=== PATIENT | female | born 1955 | race Caucasian/White ===

== ENCOUNTER 2024-02-02 19:38 | Emergency (ER) | payer MEDICARE, SELFPAY ==
[2024-02-02] VITALS (7 sets, daily range): BP systolic 105–148; BP diastolic 76–89; PULSE 102–104; TEMP 37.4; O2SAT 98; BMI 34.0
--- NOTE | 2024-02-02 19:54 | ECG_ITS ---
[facility] Test Date: 2024-02-02 Pat Name: CESAR VALVERDE Department: Room: - Gender: Female [employer] Architect: : 1955 Requested By: [id number] Order Number: [id number] Reading MD: POLLY RAMOS Measurements Intervals [place] Rate: 102 P: 65 [place]: 162 QRS: 65 QRSD: 82 T: 60 QT: 348 QTc: 407 Interpretive Statements 1120 Sinus tachycardia 9140 abnormal rhythm ECG No previous ECG available for comparison Electronically Signed On 02-03-2024 18:38:51 EDT by POLLY RAMOS
--- NOTE | 2024-02-02 19:55 | ED_ITS ---
HPI HPI - General Adult General Chief complaint: Chest Pain Stated complaint: CP, DIFF BREATHING, STD CHECK D/T BLEEDING Time Seen by Provider: 02/02/24 19:41 Source: patient Mode of arrival: walk-in Limitations: no limitations History of Present Illness HPI narrative: 68-year-old female presents for a multitude of complaints. She states she does not feel well and has not felt well for 3 days. She complains of abdominal pain and possibly some blood in her urine. She is worried about an STD because she had sex for the first time in a year 2 weeks ago. She also seems to be having some chest pain which has been there for days and a slight cough. Related Data Previous Rx's ?Medication ?Instructions ?Recorded sulfamethoxazole 800 1 tab PO BID 7 days #14 tabs 02/02/24 mg-trimethoprim 160 mg tablet (Bactrim DS) Allergies Allergy/AdvReac Type Severity Reaction Status Date / Time amoxicillin Allergy Unknown Verified 02/02/24 19:45 bee venom protein (honey bee) Allergy Unknown Verified 02/02/24 19:45 Penicillins Allergy Unknown Verified 02/02/24 19:45 Opioid HPI Opioid Management Most Recent Opioid Data: No Data to Display Review of Systems ROS Narrative A ten point review of systems is negative except as noted above. Exam Narrative Exam Narrative: Nurses note and vital signs reviewed and patient is not hypoxic. General: The patient appears well and in no apparent distress. Skin: Warm, dry, no pallor noted. There is no rash noted. Head: Normocephalic, atraumatic Eye: Normal conjunctiva, no drainage Ears, Nose, Mouth, and Throat: oral mucosa is moist. Nares patent. There is a lesion at the tip of her tongue. No bleeding Cardiovascular: Regular Rate and Rhythm Respiratory: Patient is in no distress, no accessory muscle use, lungs are clear to auscultation, no wheezing, rales or rhonchi Back: non-tender, no CVA tenderness bilaterally to percussion. GI: Soft and nondistended. Minimal tenderness present Musculoskeletal: The patient has no evidence of calf tenderness, no pitting edema, symmetrical pulses noted bilaterally Neurological: A&O, normal speech Psychiatric: Cooperative, appears anxious Constitutional Vital Signs, click to edit/add: Last Vital Signs Temp 99.3 F 02/02/24 19:45 Pulse 104 H 02/02/24 19:45 Resp 18 02/02/24 19:45 BP 105/82 02/02/24 20:31 Pulse Ox 98 02/02/24 19:45 O2 Del Method Room Air 02/02/24 19:45 Course Vital Signs Vital signs: Vital Signs Temperature 99.3 F 02/02/24 19:45 Pulse Rate 104 H 02/02/24 19:45 Respiratory Rate 18 02/02/24 19:45 Blood Pressure 148/89 H 02/02/24 19:45 Pulse Oximetry 98 02/02/24 19:45 Oxygen Delivery Method Room Air 02/02/24 19:45 Temperature 99.3 F 02/02/24 19:45 Pulse Rate 104 H 02/02/24 19:45 Respiratory Rate 18 02/02/24 19:45 Blood Pressure 105/82 02/02/24 20:31 Pulse Oximetry 98 02/02/24 19:45 Oxygen Delivery Method Room Air 02/02/24 19:45 Medical Decision Making MDM Narrative Medical decision making narrative: Blood work is essentially normal. Chest x-ray is normal. Urine suggest possible UTI and she started on Bactrim here. COVID, influenza, and strep test are all negative. Findings are discussed with the patient and her doctor and she is discharged home. Treatment diagnosis and follow-up were discussed thoroughly. Differential Diagnosis Differential Diagnosis: UTI, pneumonia, dehydration, COVID, influenza, strep Lab Data Lab results reviewed: Yes I reviewed the patient's lab results Labs: Lab Results 02/02/24 02/02/24 02/02/24 Range/Units 20:12 20:24 20:55 WBC 7.1 (4.0-11.0) 10^3/uL RBC 4.43 (4.20-5.40) 10^6/uL Hgb 12.8 (12.0-16.0) g/dL Hct 39.9 (36.0-48.0) % MCV 90.1 (81.0-99.0) fL MCH 28.9 (26.7-34.0) pg MCHC 32.1 (29.9-35.2) g/dL RDW 15.2 H (11.0-15.0) % Plt Count 300 (150-450) 10^3/uL MPV 9.9 (9.5-13.5) fL Neut % (Auto) 51.2 (43.0-75.0) % Lymph % (Auto) 36.2 (20.5-60.0) % [place] % (Auto) 9.1 (1.7-12.0) % Eos % (Auto) 2.4 (0.9-7.0) % Baso % (Auto) 0.8 (0.2-2.0) % Neut # (Auto) 3.6 (1.4-6.5) 10^3/uL Lymph # (Auto) 2.6 (1.2-3.8) 10^3/uL [place] # (Auto) 0.7 (0.3-0.8) 10^3/uL Eos # (Auto) 0.2 (0.0-0.7) 10^3/uL Baso # (Auto) 0.1 (0.0-0.1) 10^3/uL Abs Immat Gran (auto) 0.02 (0.00-0.03) 10^3/uL Imm/Tot Granulo (auto) 0.3 (0.0-0.5) % Sodium 141 (136-145) mmol/L Potassium 3.1 L (3.5-5.1) mmol/L Chloride 106 (98-107) mmol/L Carbon Dioxide 26.2 (21.0-32.0) mmol/L Anion Gap 11.9 BUN 14.0 (7.0-18.0) mg/dL Creatinine 0.85 (0.55-1.02) mg/dL Est GFR ( Amer) >60 (>=60) Est GFR (Non-Af Amer) >60 (>=60) BUN/Creatinine Ratio 16.5 Glucose 136 H (74-106) mg/dL Calcium 9.2 (8.5-10.1) mg/dL Troponin I High Sens 7.7 (4.0-51.3) pg/mL Urine Color Lt. yellow (YELLOW) Urine Clarity Clear (CLEAR) Urine pH 6.0 (5.0-9.0) Ur Specific [place] 1.025 (1.005-1.025) Urine Protein Negative (NEG/TRACE) mg/dL Urine Glucose (UA) Negative (NEGATIVE) mg/dL Urine Ketones Negative (NEGATIVE) mg/dL Urine Occult Blood Negative (NEGATIVE) Urine Nitrite Negative (NEGATIVE) Urine Bilirubin Negative (NEGATIVE) Urine Urobilinogen 1.0 (0.2-1.0) EU/dL Ur Leukocyte Esterase Moderate A (NEGATIVE) Urine RBC 0-2 (0-2) #/HPF Urine WBC 5-10 A (NONE SEEN) #/HPF Ur Squamous Epith Cells Many A (NONE/RARE) #/LPF Ur Transition Epith Cell Rare A (NONE SEEN) #/LPF Urine Crystals Seen A (None Seen) #/HPF Amorphous Sediment Few Urine Bacteria Small A (NONE SEEN) #/HPF Urine Casts None seen (NONE SEEN) #/LPF Urine Mucus None seen (NONE SEEN) Ur Culture Indicated? Yes Influenza Type A Ag Negative Influenza Type B Ag Negative SARS-CoV-2 Ag (CV2AG) Negative (NEGATIVE) Streptococcus Screen Negative Imaging Data Chest x-ray: Radiologist's impression: ITS Impressions Chest X-Ray 02/02/24 19:55 Impression: No acute cardiopulmonary process. Electronically authenticated by: CECY RSOADO Date: 02/02/2024 21:07 ECG Data Attestation: I personally reviewed and interpreted this ECG as follows: (EKG on my interpretation shows sinus tachycardia with a rate of 102. No acute change) Discharge Plan Discharge Stand Alone Forms: Portal Instructions Chief Complaint: Chest Pain Clinical Impression: Urinary tract infection Patient Disposition: Home, Self-Care Time of Disposition Decision: 21:20 Condition: Good Mode of Transportation: Private Vehicle Prescriptions / Home Meds: New sulfamethoxazole-trimethoprim [Bactrim DS] 800-160 mg tablet 1 tab PO BID 7 Days Qty: 14 0RF Print Language: [place] Instructions: Urinary Tract Infection in Women (ED) Referrals: Cheyenne Whaley MD [Physician] - 1 week Physician,Non-Staff, [Primary Care Provider] - 1 week
--- NOTE | 2024-02-02 19:55 | XR_ITS ---
The [address] [address] Patient Name: CESAR VALVERDE MRN: [id number] date: 1955 Sex: F Assigned Patient Location: ER Current Patient Location: ER Accession/Order Number: [id number] Exam Date: 02/02/2024 21:30 Report Date: 02/02/2024 21:07 At the request of: LUIS ANDUJAR Procedure: XR chest 1V XR chest 1V 02/02/2024 8:30 PM CDT: History: Chest pain Comparison: None. Technique: 1 view chest Findings: The cardiomediastinal silhouette is normal. The lungs are clear without infiltrate, effusion, or pneumothorax. The bones are intact. XR/XR chest 1V Impression: No acute cardiopulmonary process. Electronically authenticated by: CECY ROSADO Date: 02/02/2024 21:07
[2024-02-02 20:32] LABS: Basophils Absolute Auto 0.1 10^3/uL (0.0-0.1); Basophils Percent Auto 0.8 % (0.2-2.0); Eosinophils Absolute Auto 0.2 10^3/uL (0.0-0.7); Eosinophils Percent Auto 2.4 % (0.9-7.0); Hematocrit 39.9 % (36.0-48.0); Hemoglobin 12.8 g/dL (12.0-16.0); Immature Granulocytes Abs Auto 0.02 10^3/uL (0.00-0.03); Immature Granulocytes Pct Auto 0.3 % (0.0-0.5); Lymphocytes Absolute Auto 2.6 10^3/uL (1.2-3.8); Lymphocytes Percent Auto 36.2 % (20.5-60.0); Mean Corpuscular HGB Conc 32.1 g/dL (29.9-35.2); Mean Corpuscular Hemoglobin 28.9 pg (26.7-34.0); Mean Corpuscular Volume 90.1 fL (81.0-99.0); Mean Platelet Volume 9.9 fL (9.5-13.5); Monocytes Absolute Auto 0.7 10^3/uL (0.3-0.8); Monocytes Percent Auto 9.1 % (1.7-12.0); Neutrophils Absolute Auto 3.6 10^3/uL (1.4-6.5); Neutrophils Percent Auto 51.2 % (43.0-75.0); Platelet Count 300 10^3/uL (150-450); Red Blood Count 4.43 10^6/uL (4.20-5.40); Red Cell Distribution Width 15.2 % (11.0-15.0); White Blood Count 7.1 10^3/uL (4.0-11.0)
[2024-02-02 20:34] LABS: Bilirubin Urine NEGATIVE (NEGATIVE); Blood Urine NEGATIVE (NEGATIVE); Clarity Urine CLEAR (CLEAR); Color Urine LT. YELLOW (YELLOW); Glucose Urine UA NEGATIVE (NEGATIVE); Ketones Urine NEGATIVE (NEGATIVE); Leukocyte Esterase Urine MODERATE (NEGATIVE); Nitrite Urine NEGATIVE (NEGATIVE); Protein Urine NEGATIVE (NEG/TRACE); Specific Gravity Urine 1.025 (1.005-1.025)
[2024-02-02 20:41] LABS: Anion Gap 11.9; BUN Creatinine Ratio 16.5; Calcium 9.2 mg/dL (8.5-10.1); Carbon Dioxide 26.2 mmol/L (21.0-32.0); Chloride 106 mmol/L (98-107); Estimated GFR (African America >60 (>=60); Estimated GFR (Non-African Ame >60 (>=60); Glucose 136 mg/dL (74-106); Potassium 3.1 mmol/L (3.5-5.1); Sodium 141 mmol/L (136-145)
[2024-02-02 20:42] LABS: Amorphous Sediment Urine FEW; Bacteria Urine SMALL #/HPF (NONE SEEN); Cast Seen? NONE SEEN #/LPF (NONE SEEN); Crystals Seen? Seen #/HPF (None Seen); Mucus Urine NONE SEEN (NONE SEEN); RBC Urine 0-2 #/HPF (0-2); Squamous Epithelial Cell Urine MANY #/LPF (NONE/RARE); Transitional Epi Cells Urine RARE #/LPF (NONE SEEN); Urine Culture Indicated YES
[2024-02-02 20:49] LABS: Troponin I High Sensitivity 7.7 pg/mL (4.0-51.3)
[2024-02-02 21:08] LABS: Internal Control Within Normal Limits; Strep A Antigen Screen Negative
[2024-02-02 21:13] LABS: Influenza Virus A Antigen Negative; Influenza Virus B Antigen Negative; Internal Control Within Normal Limits; SARS-CoV-2 Ag NEGATIVE (NEGATIVE)
[2024-02-02] MEDS: SULFAMETHOXAZOLE/TRIMETHOPRIM 800-160 MG TABLET 1 TAB PO (21:37)
[2024-02-02] MEDS: PHENAZOPYRIDINE 100 MG TABLET PO (21:37)
[2024-02-05 20:10] LABS: Neisseria gonorrhoeae, NAA Negative (Negative)
== END 2024-02-02 21:46 | disposition home or self-care (01) ==
PROVIDERS: Emergency Provider Emergency Medicine
DX: N39.0 Urinary tract infection, site not specified (principal); Z20.822 Contact with and (suspected) exposure to COVID-19; Z20.2 Contact with and (suspected) exposure to infections with a predominantly sexual mode of transmission; R07.9 Chest pain, unspecified
CPT/HCPCS: 36415; 71045; 80048; 81001; 84484; 85025; 87070; 87086; 87491; 87591; 87804; 87811; 87880; 93005; 99285